=== PATIENT | male | born 1970 | race Caucasian/White ===

== ENCOUNTER 2022-02-08 12:50 | Emergency (ER) | payer OTHER ==
[2022-02-08] MEDS ORDERED: Lidocaine 1% 5 ML VIAL INJECT ONE (13:24)
[2022-02-08] MEDS ORDERED: Bacitracin Oint 1 GM U/D Packet TOP ONE (13:41)
== END 2022-02-08 13:52 | disposition home or self-care (01) ==
LOC: DL.ED 12:50
DX: S69.91XA Unspecified injury of right wrist, hand and finger(s), initial encounter (principal); W45.8XXA Other foreign body or object entering through skin, initial encounter
CPT/HCPCS: 99283